=== PATIENT | female | born 1975 | race Hispanic/Latino ===

== ENCOUNTER 2020-12-31 19:48 | Emergency (ER) | payer OTHER ==
[~2020-12-31] VITALS: Ht 160 cm; Wt 111.1 kg
[2020-12-31] MEDS ORDERED: LIDOCAINE HCL 2% VISCOUS 15 ML UDCUP PO ONE (20:30)
[2020-12-31] MEDS ORDERED: FAMOTIDINE 20MG VIAL IV ONE (20:30)
[2020-12-31] MEDS ORDERED: MAG/ALUM/SIMETH 30 ML UDCUP PO ONE (20:30)
[2020-12-31] MEDS ORDERED: ONDANSETRON 4MG INJ IVP ONE (20:30)
[2020-12-31 20:32] LABS: APPEARANCE,URINE Clear (CLEAR); BILIRUBIN,URINE Negative (NEGATIVE); COLOR,URINE Yellow (YELLOW); GLUCOSE, URINE (UA) >=1000 mg/dL (NEGATIVE); KETONES,URINE Negative (NEGATIVE); LEUKOCYTE ESTERASE ,URINE Trace (NEGATIVE); NITRATE,URINE Negative (NEGATIVE); OCCULT BLOOD,URINE Negative (NEGATIVE); PROTEIN,URINE POS 1+ mg/dL (NEGATIVE)
[2020-12-31 20:37] LABS: HCG,QUAL RESULT NEGATIVE (NEGATIVE)
[2020-12-31 20:39] LABS: BASOPHILS % (AUTO) 0.3 % (0.0-5.0); EOSINOPHILS % (AUTO) 1.1 % (0.0-8.0); LYMPHOCYTES % (AUTO) 26.2 % (21.0-51.0); MEAN CORPUSCULAR HEMOGLOBIN 23.1 pg (27.0-33.0); MEAN CORPUSCULAR HGB CONC 31.4 g/dL (32.0-36.0); MEAN CORPUSCULAR VOLUME 73.6 fL (79-99); MONOCYTES % (AUTO) 6.7 % (3.0-13.0); NEUTROPHILS % (AUTO) 65.2 % (40.0-77.0); PLATELET COUNT (AUTO) 443 K/uL (130-400); RED BLOOD CELL COUNT(AUTO) 5.03 MIL/uL (4.00-5.50); RED CELL DISTRIBUTION WIDTH 16.6 % (11.0-15.5); WHITE BLOOD COUNT (AUTO) 12.9 K/uL (4.8-10.8)
[2020-12-31 20:50] LABS: BACTERIA,URINE Few /HPF (None Seen); CALCIUM OXALATE CRYSTALS,UR Few /LPF (None Seen); MUCUS,URINE Moderate LPF (None Seen); SQUAMOUS EPITHELIAL CELL,UR Few /HPF (0-2)
[2020-12-31 20:52] LABS: CREATININE 0.8 mg/dL (0.5-1.5); POTASSIUM 3.5 mmol/L (3.5-5.1)
[2020-12-31 20:56] LABS: ALBUMIN 3.1 g/dL (3.5-5.0); BILIRUBIN,TOTAL 0.3 mg/dL (0.2-1.0); TOTAL PROTEIN, SERUM 7.9 g/dL (6.0-8.3)
[2020-12-31] MEDS ORDERED: INSULIN HUMULIN R 100 UNIT/ML 3ML SQ ONE (21:30)
[2020-12-31] MEDS ORDERED: 0.9%NACL 1000ML 1,000 ML IV ONE (21:30)
[2020-12-31] MEDS ORDERED: CEFTRIAXONE 1G VIAL IVP ONE (21:30)
[2020-12-31] MEDS ORDERED: FAMO-136 PO (22:53)
[2020-12-31] MEDS ORDERED: CEPH500B PO (22:53)
[2020-12-31 23:06] VITALS: BP 216/89
[2020-12-31] MEDS ORDERED: HYDRALAZINE 20MG/ML VIAL ONE (23:12)
[2020-12-31] MEDS ORDERED: HYDRALAZINE 20MG/ML VIAL IV SCH (23:30)
[2021-01-01] MEDS ORDERED: HYDRALAZINE 20MG/ML VIAL IV ONE
[2021-01-01] MEDS ORDERED: LISINOPRIL 10 MG TABLET PO ONE
[2021-01-01] MEDS ORDERED: LISI10TA24 PO (00:02)
[2021-01-01 00:12] VITALS: BP 195/89
== END 2021-01-01 01:07 | disposition home or self-care (01) ==
LOC: EDH 19:48
DX: K29.00 Acute gastritis without bleeding (principal); N39.0 Urinary tract infection, site not specified; E10.65 Type 1 diabetes mellitus with hyperglycemia; I10 Essential (primary) hypertension; E66.9 Obesity, unspecified; Z79.899 Other long term (current) drug therapy; Z68.41 Body mass index [BMI] 40.0-44.9, adult
CPT/HCPCS: 36415; 71045; 76705; 80053; 81001; 81025; 82948; 83690; 84484; 85025; 87077; 87088; 87186; 93005; 96361; 96372; 96374; 96375 ×2; 99285; J0360; J0696; J1815; J2405; J3490; J7030

== ENCOUNTER 2025-02-20 21:56 | Emergency (ER) | payer BC, OTHER ==
[~2025-02-20] VITALS: Ht 160 cm; Wt 111.1 kg
[~2025-02-20 21:56] MED LIST: CEPH500B PO; FAMO-136 PO; LISI10TA24 PO
--- NOTE | 2025-02-20 22:00 | NUR ---
Merly raza in EDM - 02/20/25 at 2223 by [email or web address] HERNIA WAS REDUCED BY DR. VINES. REPEAT US WAS ORDERED.
--- NOTE | 2025-02-20 22:30 | ERN ---
ED Note History of Present Illness Stated Complaint: LEFT SHOULDER PAIN Chief Complaint: Upper Extremity Pain/Injury Time Seen by MD: 21:57 Dictation: Patient comes in with complaint of pain in the left anterior shoulder radiating down to the left mid arm. There was no injury. She went to sleep feeling fine and woke up with it. It has been getting worse. There was no rash. No injury. Worse with light touch of the skin and movement. He has been wearing a sling that she got from her friend. This is never happened before. Patient also reports she recently had a UTI and finished completion of antibiotic. The patient does not report dysuria but feels like she is having some frequency again. Allergies: Coded Allergies: No Known Drug Allergies (Unverified Allergy, Unknown, 12/31/20) Home Meds Active Scripts Cephalexin Monohydrate (Keflex) 500 Mg Cap, 1 CAP PO QID for 7 Days, #28 CAP 0 Refills Prov:BISHOP VINES MD 02/21/25 Ibuprofen (Ibuprofen 800 mg Tab) 800 Mg Tab, 1 TAB PO TID for pain for 10 Days, #30 TAB 0 Refills Prov:BISHOP VINES MD 02/21/25 Lisinopril (Lisinopril) 10 Mg Tablet, 1 TAB PO DAILY, #12 TAB 0 Refills Prov:TAMMI OCHOA MD 01/01/21 Famotidine (Pepcid) 20 Mg Tablet, 20 MG PO BIDAC, #60 TAB Prov:LIZABETH GUTIERREZ 12/31/20 Cephalexin Monohydrate (Keflex) 500 Mg Cap, 500 MG PO TID for 7 Days, #21 CAP Prov:LIZABETH GUTIERREZ 12/31/20 Past Medical History Past Medical History: Diabetes-Type I, Diabetes-Type II, Hypertension, Other Additional Past Medical Hx: Obesity Surgical History: None Review of System Dictation Ten systems reviewed and negative except as noted in HPI Initial Vital Sign VS Vital Signs Date Time Temp Pulse Resp B/P (MAP) Pulse Ox O2 Delivery O2 Flow Rate FiO2 02/20/25 21:57 98.8 87 22 220/87 98 Room Air 02/21/25 00:11 0 21 Physical Exam Dictation GEN: non toxic, NAD HEENT: atrumatic, PERRL, EOMI, conjunctivae normal NECK: Soft supple nontender Heart RRR, no murmurs Chest: No deformity Lungs: Lungs clear to auscultation Ab: Soft nondistended nontender Back: No midline step-offs. No gross deformity. No CVA tenderness : m/s: Moving all four extremities. No gross deformity. I do not appreciate any rashes or any vesicles in a dermatomal distribution of the shoulder or arms. No gross deformity. Patient reports pain he was light touch of the skin in the deltoid area. Able to flex and extend and we will take passively though she reports discomfort with this. Neuro: CN 2-12 intact. Moving all four extremities. Psych: Cooperative Results (Laboratory/Radiology) Laboratory/Radiology Laboratory Tests Test 02/20/25 23:30 Urine Color LIGHT-YELLOW (YELLOW) Urine Appearance CLEAR (CLEAR) Urine pH 5.5 (5.0-8.0) Urine Specific [place] 1.025 (1.001-1.031) Urine Protein 20 mg/dL (NEGATIVE) H Urine Glucose (UA) >=1000 mg/dL (NEGATIVE) H Urine Ketones 10 mg/dL (NEGATIVE) H Urine Occult Blood LARGE (NEGATIVE) H Urine Nitrate NEGATIVE (NEGATIVE) Urine Bilirubin NEGATIVE mg/dL (NEGATIVE) Urine Urobilinogen 0.2 mg/dL (0.2-1.0) Urine Leukocyte Esterase 250 Peace/uL (NEGATIVE) H Urine RBC 2-5 /HPF (0-1) H Urine WBC 26-50 /HPF (0-1) H Urine Squamous Epithelial Cells RARE /HPF (0-2) Urine Bacteria FEW /HPF (None Seen) Urine HCG, Qualitative NEGATIVE (NEGATIVE) ED Course ED Course Orders Procedure Category Date Status Time Shoulder Comp 2+Vws Lt RAD 02/20/25 Resulted 22:17 Ketorolac 60mg/2ml PHA 02/20/25 Complete (Toradol 60mg/2ml) 22:30 Urinalysis Profile LAB 02/20/25 Complete 22:48 ,Urine Test LAB 02/20/25 Complete 22:48 Culture Urine GENA 02/21/25 Logged 00:16 Cephalexin 500 Mg PHA 02/21/25 Complete Capsule (Keflex 500 Mg 01:00 Current Medications Medications (Trade) Dose Ordered Sig/Dylan Route PRN Reason Start Time Stop Time Status Last Admin Dose Admin Cephalexin (Keflex 500 MG CAPS) 500 mg ONCE ONCE PO 02/21/25 01:00 02/21/25 01:01 DC 02/21/25 00:54 Ketorolac Tromethamine (toRADol 60MG/ 2ML) 30 mg ONCE ONCE IM 02/20/25 22:30 02/20/25 22:31 DC 02/20/25 22:48 Vital Signs Date Time Temp Pulse Resp B/P (MAP) Pulse Ox O2 Delivery O2 Flow Rate FiO2 02/21/25 00:58 97.9 96 18 159/77 98 Room Air* 0 21 02/21/25 00:11 97.9 96 18 166/78 98 Room Air* 0 21 02/20/25 21:57 98.8 87 22 220/87 98 Room Air Medical Decision Making MDM Multiple differentials considered including musculoskeletal etiology. There was no history of injury. Shingles also considered a possibility as patient is having a lot of pain even with superficial touch. No rash. X-ray performed she has some AC joint arthritis but no acute osseous injury. Treat supportively. Tylenol and ibuprofen. I did let her nose rash develops in the next few days she needs to come back as shingles this certainly on the differential. Patient feeling have improved up Toradol. Her urine looks like possible uti. We will treat with cephalexin. Discharged home. DX & DISP Disposition: Discharge Departure Impression: Primary Impression: Left shoulder pain Additional Impression: UTI (urinary tract infection) Condition: Stable Scripts Cephalexin Monohydrate (Keflex) 500 Mg Cap 1 CAP PO QID for 7 Days, #28 CAP 0 Refills Prov: BISHOP VINES MD 02/21/25 Ibuprofen (Ibuprofen 800 mg Tab) 800 Mg Tab 1 TAB PO TID for pain for 10 Days, #30 TAB 0 Refills Prov: BISHOP VINES MD 02/21/25 Additional Instructions: Shoulder sling for comfort Tylenol [id number] as needed for pain Ibuprofen as prescribed and as needed for pain Return for any worsening symptoms, difficulty breathing, rash that appears on your left shoulder, or any other concerns Referrals: SELF,REFERRAL (PCP) BISHOP VINES MD Feb 20, 2025 22:30
--- NOTE | 2025-02-20 22:41 | NUR ---
PT STATES SHE IS CONCERNED ABOUT HER UTI. WHEN ASKED IF SHE HAD REPORTED THAT COCERNED WHEN SHE CAME IN SHE STATED NO. WHEN ASKED IF SHE HAD RECENTLY BEEN DIAGNOSED WITH A UTI, PT STATES SHE COMPLETED A ROUND OF ANTIBIOTICS ABOUT A WEEK AGO AND SHES CONCERNED THAT WE DIDNT EVEN RE-CHECK HER URINE. PT WAS ADVISED THAT SHE DID NOT REPORT SYMPTOMS AND WE CANNOT INTUIT SYMPTOMS IF SHE IS NOT REPORTING THEM. PT WAS ASKED IF SHE IS CURRENTLY PRESENTING WITH ANY UTI TYPE SYMPTOMS AND STATES THAT SHE IS NOT BUT WANTS TO BE CHECKED ANYWAY. DR. RICKETTS WAS ADVISED OF CONVERSATION AND UA WAS ORDERED. PT WAS MADE AWARE THAT UTI WILL BE NEEDED FOR EVALUATION SHE IS REQUESTING.
--- NOTE | 2025-02-20 22:46 | HMCIMG ---
Similar masses seen in the pelvisComparison: No prior History: Shoulder pain Technique: 2 views of the shoulder Findings: Anatomic alignment is maintained. There is no acute fracture or dislocation. The soft tissues are unremarkable. There are no erosive changes seen. Narrowing of the joint space is noted at the a.c. joint which suggest arthritis. No focal lesion is seen. Impression: 1.Moderate a.c. joint arthritis. 2.Note this exam does not evaluate the rotator cuff or the labrum. If there is concern for underlying rotator cuff tendinopathy, consider MRI evaluation /[place]
[2025-02-21 00:01] LABS: HCG,QUALITATIVE URINE NEGATIVE (NEGATIVE)
[2025-02-21 00:09] LABS: APPEARANCE,URINE CLEAR (CLEAR); GLUCOSE, URINE (UA) >=1000 mg/dL (NEGATIVE); LEUKOCYTE ESTERASE ,URINE 250 Leu/uL (NEGATIVE); NITRATE,URINE NEGATIVE (NEGATIVE); OCCULT BLOOD,URINE LARGE (NEGATIVE)
[2025-02-21 00:14] LABS: ADD UA MICROSCOPIC YES
[2025-02-21] MEDS ORDERED: IBUP-2077 PO (00:15)
[2025-02-21 00:21] LABS: SQUAMOUS EPITHELIAL CELL,UR RARE /HPF (0-2)
[2025-02-21] MEDS ORDERED: CEPH500B PO (00:49)
[2025-02-21 00:58] VITALS: BP 159/77; PULSE 96; RESP 18; TEMP 97.9; O2SAT 98
== END 2025-02-21 01:03 | disposition home or self-care (01) ==
LOC: EDH 21:56
DX: M25.512 Pain in left shoulder (principal); N39.0 Urinary tract infection, site not specified; E10.9 Type 1 diabetes mellitus without complications; E66.9 Obesity, unspecified; I10 Essential (primary) hypertension; Z79.1 Long term (current) use of non-steroidal anti-inflammatories (NSAID); Z79.899 Other long term (current) drug therapy
CPT/HCPCS: 99284; 87086 ×2; 87186; 81001; 81025; 73030; 96372; J1885